=== PATIENT | male | born 1980 | race Caucasian/White ===

== ENCOUNTER → 2019-02-04 | Outpatient (REF) | payer OTHER ==
[~2019-02-04] MED LIST: IBUP200C PO; PENI500T PO
[2019-02-04 11:58] LABS: BASO # 0.1 10^3/uL (0.0-0.2); BASO % 0.6 % (0.0-1.0); EOS % 0.4 % (0.0-3.0); HEMATOCRIT 44.7 % (42.0-52.0); HEMOGLOBIN 15.6 g/dl (13.5-17.5); LYMPH # 1.9 10^3/uL (1.5-5.0); MEAN CORPUSCULAR HEMOGLOBIN 30.6 pg (27.0-33.0); MEAN CORPUSCULAR HGB CONC 34.9 g/dl (32.0-36.5); MEAN CORPUSCULAR VOLUME 87.6 fl (80.0-96.0); MONO # 0.6 10^3/uL (0.0-0.8); MONO % 6.9 % (0.0-5.0); NEUTROPHILS # 5.9 10^3/uL (1.5-8.5); NEUTROPHILS % 69.5 % (36.0-66.0); PLATELET COUNT, AUTOMATED 301 10^3/uL (150-450); WHITE BLOOD COUNT 8.5 10^3/uL (4.0-10.0)
[2019-02-04 12:26] LABS: ALBUMIN 3.9 GM/DL (3.2-5.2); CHOLESTEROL RISK RATIO 2.767 (<5); CREATININE FOR GFR 1.43 MG/DL (0.70-1.30); GLOMERULAR FILTRATION RATE 58.9 (>60); POTASSIUM SERUM 4.3 MEQ/L (3.5-5.1); THYROID STIMULATING HORMONE 2.75 uIU/ML (0.358-3.740); TOTAL PROTEIN 7.5 GM/DL (6.4-8.2)
[2019-02-04 12:27] LABS: FREE T4 0.9 NG/DL (0.76-1.46)
[2019-02-04 12:36] LABS: HEMOGLOBIN A1c 5.7 %
== END ==
LOC: M SFHCLERA 09:24
PROVIDERS: ATTEND Nurse Practitioner Family
DX: I10 Essential (primary) hypertension (principal); Z13.220 Encounter for screening for lipoid disorders; Z13.1 Encounter for screening for diabetes mellitus

== ENCOUNTER → 2019-05-19 | Outpatient (REF) | payer OTHER ==
[2019-05-19 11:49] LABS: ALT/SGPT 46 U/L (12-78); BILIRUBIN,TOTAL 1.1 MG/DL (0.2-1.0); BLOOD UREA NITROGEN 17 MG/DL (7-18); CARBON DIOXIDE LEVEL 29 MEQ/L (21-32); CHLORIDE LEVEL 102 MEQ/L (98-107); CREATININE FOR GFR 1.32 MG/DL (0.70-1.30); GLOMERULAR FILTRATION RATE > 60.0 (>60); GLUCOSE, FASTING 96 MG/DL (70-100); POTASSIUM SERUM 4.3 MEQ/L (3.5-5.1); SODIUM LEVEL 139 MEQ/L (136-145); TOTAL PROTEIN 7.6 GM/DL (6.4-8.2)
== END ==
LOC: M SFHCLERA 08:08
PROVIDERS: ATTEND Nurse Practitioner Family
DX: I10 Essential (primary) hypertension (principal)

== ENCOUNTER → 2020-04-30 | Outpatient (REF) | payer OTHER | LOC: M LAB REF 19:09 | PROVIDERS: ATTEND Physician Assistant | DX: Z11.59 Encounter for screening for other viral diseases (principal) ==

== ENCOUNTER → 2021-01-12 | Outpatient (CLI) | payer OTHER ==
[2021-01-12 11:33] LABS: BASO % 0.5 % (0.0-1.0); EOS % 0.5 % (0.0-3.0); HEMATOCRIT 46.6 % (42.0-52.0); HEMOGLOBIN 15.6 g/dl (13.5-17.5); LYMPH # 2.5 10^3/uL (1.5-5.0); LYMPH % 28.4 % (24.0-44.0); MEAN CORPUSCULAR HEMOGLOBIN 30.5 pg (27.0-33.0); MEAN CORPUSCULAR HGB CONC 33.5 g/dl (32.0-36.5); MEAN CORPUSCULAR VOLUME 91.2 fl (80.0-96.0); MONO # 0.7 10^3/uL (0.0-0.8); NEUTROPHILS # 5.4 10^3/uL (1.5-8.5); NEUTROPHILS % 61.8 % (36.0-66.0); PLATELET COUNT, AUTOMATED 295 10^3/uL (150-450); RED BLOOD COUNT 5.11 10^6/uL (4.30-6.10); WHITE BLOOD COUNT 8.7 10^3/uL (4.0-10.0)
[2021-01-12 12:20] LABS: MALB URINE SIEMENS 14.7 MG/L; MAU/CREAT RATIO 5.3 MCG/MG (0.0-30.0)
[2021-01-12 12:28] LABS: ALBUMIN 3.6 GM/DL (3.2-5.2); ALT/SGPT 58 U/L (12-78); BILIRUBIN,TOTAL 0.8 MG/DL (0.2-1.0); BLOOD UREA NITROGEN 16 MG/DL (7-18); CALCIUM LEVEL 8.8 MG/DL (8.5-10.1); CARBON DIOXIDE LEVEL 28 MEQ/L (21-32); CHLORIDE LEVEL 107 MEQ/L (98-107); CHOLESTEROL LEVEL 132 MG/DL (<200); CHOLESTEROL RISK RATIO 2.869 (<5); CREATININE FOR GFR 1.25 MG/DL (0.70-1.30); GLOMERULAR FILTRATION RATE > 60.0 (>60); GLUCOSE, FASTING 102 MG/DL (70-100); HDL CHOLESTEROL 46 MG/DL (>40); LDL CHOLESTEROL 71 MG/DL (<100); NON-HDL-C 86 MG/DL; POTASSIUM SERUM 4.2 MEQ/L (3.5-5.1); SODIUM LEVEL 140 MEQ/L (136-145); TRIGLYCERIDES LEVEL 77 MG/DL (<150)
== END ==
LOC: M WUC 09:41
PROVIDERS: ATTEND Nurse Practitioner Family
DX: I10 Essential (primary) hypertension (principal); Z13.220 Encounter for screening for lipoid disorders

== ENCOUNTER → 2021-03-09 | Outpatient (REF) | payer OTHER | LOC: M SMT 13:22 | PROVIDERS: ATTEND Urology | DX: Z30.2 Encounter for sterilization (principal) ==

== ENCOUNTER → 2021-05-04 | Outpatient (REF) | payer OTHER ==
[2021-05-04 09:38] LABS: SEMEN APPEARANCE OPAQUE (OPAQUE); SEMEN VISCOSITY LIQUID (LIQUID); SEMEN VOLUME 3.5 ml (2.0-5.0); WBC CONCENTRATION <=1 M/ml (<=1 M/ml)
== END ==
LOC: M SMT 08:34
PROVIDERS: ATTEND Urology
DX: Z30.8 Encounter for other contraceptive management (principal)

== ENCOUNTER → 2022-03-15 | Outpatient (CLI) | payer OTHER ==
[~2022-03-15] MED LIST changes: +AMLO1TAB24; +DOXY-443 PO; +LOSA100T45; +MULT1TAB8 PO
[2022-03-15 18:05] LABS: BASO # 0.1 10^3/uL (0.0-0.2); BASO % 0.4 % (0.0-1.0); EOS # 0.1 10^3/uL (0.0-0.5); EOS % 0.4 % (0.0-3.0); HEMATOCRIT 45.4 % (42.0-52.0); LYMPH # 2.3 10^3/uL (1.5-5.0); LYMPH % 17.1 % (24.0-44.0); MEAN CORPUSCULAR HEMOGLOBIN 30.8 pg (27.0-33.0); MEAN CORPUSCULAR VOLUME 93.2 fl (80.0-96.0); MONO # 1.1 10^3/uL (0.0-0.8); MONO % 7.9 % (2.0-8.0); NEUTROPHILS % 73.8 % (36.0-66.0); PLATELET COUNT, AUTOMATED 301 10^3/uL (150-450); RED BLOOD COUNT 4.87 10^6/uL (4.30-6.10); WHITE BLOOD COUNT 13.6 10^3/uL (4.0-10.0)
[2022-03-15 18:39] LABS: ERYTHROCYTE SEDIMENTATION RATE 14 mm/hr (0-15)
[2022-03-15 19:17] LABS: ALBUMIN 4.1 GM/DL (3.2-5.2); ALT/SGPT 39 U/L (12-78); BILIRUBIN,TOTAL 1.1 MG/DL (0.2-1.0); BLOOD UREA NITROGEN 22 MG/DL (7-18); C REACTIVE PROTEIN QUANTITATIV 3.69 MG/DL (0.00-0.30); CALCIUM LEVEL 8.9 MG/DL (8.5-10.1); CARBON DIOXIDE LEVEL 26 MEQ/L (21-32); CHLORIDE LEVEL 106 MEQ/L (98-107); CREATININE FOR GFR 1.26 MG/DL (0.70-1.30); GLOMERULAR FILTRATION RATE > 60.0 (>60); GLUCOSE, FASTING 128 MG/DL (70-100); POTASSIUM SERUM 3.7 MEQ/L (3.5-5.1); SODIUM LEVEL 138 MEQ/L (136-145); TOTAL PROTEIN 7.6 GM/DL (6.4-8.2)
== END ==
LOC: M WUC 15:08
PROVIDERS: ATTEND Family Medicine
DX: M79.672 Pain in left foot (principal); M25.476 Effusion, unspecified foot

== ENCOUNTER 2022-03-16 17:27 | Emergency (ER) | payer OTHER ==
[~2022-03-16] VITALS: Ht 172.7 cm; Wt 125.0 kg
[~2022-03-16 17:27] MED LIST changes: -AMLO1TAB24; -DOXY-443 PO; -LOSA100T45; -MULT1TAB8 PO
[2022-03-16] MEDS ORDERED: MULT1TAB8 PO (17:43)
[2022-03-16] MEDS ORDERED: AMLO1TAB24 (17:43)
[2022-03-16] MEDS ORDERED: LOSA100T45 (17:43)
[2022-03-16] MEDS ORDERED: DOXYCYCLINE HYCLATE 100MG TABLET PO ONE (21:00)
[2022-03-16] MEDS ORDERED: LIDOCAINE 1% SDV 5ML VIAL DILUENT ONE (21:00)
[2022-03-16] MEDS ORDERED: cefTRIAXone SOD 1GM VIAL (J0696 PER 250MG) IM ONE (21:00)
[2022-03-16] MEDS ORDERED: DOXY-443 PO (21:02)
[2022-03-16 21:27] VITALS: BP 140/83
[2022-03-16 21:53] LABS: GC DNA AMPLIFICATION NEGATIVE (NEGATIVE)
[2022-03-17] MEDS ORDERED: INDO50CA91 PO (16:50)
== END 2022-03-16 21:37 | disposition home or self-care (01) ==
LOC: M ED 17:27
DX: N34.1 Nonspecific urethritis (principal); L03.116 Cellulitis of left lower limb; Z79.899 Other long term (current) drug therapy
CPT/HCPCS: 81000; 87086; 87661; 87810; 87850; 96372; 99283; J0696

== ENCOUNTER 2022-03-22 15:13 | Emergency (ER) | payer OTHER ==
[~2022-03-22] VITALS: Ht 172.7 cm; Wt 127.5 kg
[~2022-03-22 15:13] MED LIST changes: +AMLO1TAB24; +DOXY-443 PO; +INDO50CA91 PO; +LOSA100T45; +MULT1TAB8 PO
[2022-03-22] MEDS ORDERED: DOXY-443 PO (18:55)
[2022-03-22 19:21] VITALS: BP 159/85
== END 2022-03-22 19:29 | disposition home or self-care (01) ==
LOC: M ED 15:13
DX: S82.831A Other fracture of upper and lower end of right fibula, initial encounter for closed fracture (principal); L03.116 Cellulitis of left lower limb; I10 Essential (primary) hypertension; Z79.899 Other long term (current) drug therapy

== ENCOUNTER → 2022-03-30 | Outpatient (CLI) | payer OTHER | LOC: M SOG 10:39 | PROVIDERS: ATTEND Orthopaedic Surgery | DX: M25.561 Pain in right knee (principal) ==

== ENCOUNTER → 2023-11-01 | Outpatient (REF) | payer OTHER ==
[~2023-11-01] MED LIST changes: +DOXY-323 PO; -DOXY-443 PO; -LOSA100T45; +LOSA100T46
== END ==
LOC: M SFHCLERA 15:56
PROVIDERS: ATTEND Family Medicine
DX: I10 Essential (primary) hypertension (principal); R73.03 Prediabetes; E66.01 Morbid (severe) obesity due to excess calories; Z53.8 Procedure and treatment not carried out for other reasons

== ENCOUNTER → 2023-11-02 | Outpatient (REF) | payer OTHER ==
[2023-11-02 17:07] LABS: BASO % 0.6 % (0.0-1.0); EOS % 0.6 % (0.0-3.0); HEMATOCRIT 45.4 % (42.0-52.0); HEMOGLOBIN 15.2 g/dl (13.5-17.5); LYMPH # 2.2 10^3/uL (1.5-5.0); LYMPH % 34.8 % (24.0-44.0); MEAN CORPUSCULAR HEMOGLOBIN 30.7 pg (27.0-33.0); MEAN CORPUSCULAR HGB CONC 33.5 g/dl (32.0-36.5); MEAN CORPUSCULAR VOLUME 91.7 fl (80.0-96.0); MONO # 0.5 10^3/uL (0.0-0.8); NEUTROPHILS # 3.5 10^3/uL (1.5-8.5); NEUTROPHILS % 55.5 % (36.0-66.0); PLATELET COUNT, AUTOMATED 279 10^3/uL (150-450); RED BLOOD COUNT 4.95 10^6/uL (4.30-6.10); WHITE BLOOD COUNT 6.2 10^3/uL (4.0-10.0)
[2023-11-02 17:09] LABS: ALBUMIN 3.6 G/DL (3.2-5.2); ALKALINE PHOSPHATASE 98 U/L (46-116); ALT/SGPT 34 U/L (7.0-40); AST/SGOT 16 U/L (<34); BILIRUBIN,TOTAL 0.9 MG/DL (0.3-1.2); BLOOD UREA NITROGEN 20 MG/DL (9-23); CALCIUM LEVEL 9.2 MG/DL (8.5-10.1); CARBON DIOXIDE LEVEL 28 MMOL/L (20-31); CHLORIDE LEVEL 106 MMOL/L (98-107); CHOLESTEROL LEVEL 101 MG/DL (<200); CHOLESTEROL RISK RATIO 2.72 (<5); CREATININE FOR GFR 1.23 MG/DL (0.70-1.30); GLOMERULAR FILTRATION RATE > 60.0 (>60); GLUCOSE, FASTING 99 MG/DL (60-100); HDL CHOLESTEROL 37.1 MG/DL (>40); LDL CHOLESTEROL 51.9 MG/DL (<100); NON-HDL-C 63.9 MG/DL; POTASSIUM SERUM 4.4 MMOL/L (3.5-5.1); SODIUM LEVEL 139 MMOL/L (136-145); TOTAL PROTEIN 6.9 G/DL (5.7-8.2); TRIGLYCERIDES LEVEL 60 MG/DL (<150)
[2023-11-02 17:12] LABS: APPEARANCE, URINE TURBID (CLEAR); BACTERIA, URINE AUTO NEGATIVE (NEGATIVE); BILIRUBIN, URINE AUTO NEGATIVE (NEGATIVE); BLOOD, URINE BLOOD NEGATIVE (NEGATIVE); COLOR, URINE AMBER (YELLOW); GLUCOSE, URINE (UA) AUTO NEGATIVE (NEGATIVE); KETONE, URINE AUTO NEGATIVE (NEGATIVE); LEUKOCYTE ESTERASE, URINE AUTO NEGATIVE (NEGATIVE); MUCUS, URINE SMALL (NEGATIVE); NITRITE, URINE AUTO NEGATIVE (NEGATIVE); PROTEIN, URINE AUTO NEGATIVE (NEGATIVE); RBC, URINE AUTO 0 /HPF (0-3); SPECIFIC GRAVITY URINE AUTO 1.027 (1.002-1.035); SQUAMOUS EPITHELIAL CELL UR AU 0 /HPF (0-6); UROBILINOGEN, URINE AUTO 0.2 mg/dL (0.0-2.0); WBC, URINE AUTO 1 /HPF (0-3)
[2023-11-02 17:47] LABS: HEMOGLOBIN A1c 5.7 % (4.0-6.0)
== END ==
LOC: M SFHCLERA 09:07
PROVIDERS: ATTEND Family Medicine
DX: I10 Essential (primary) hypertension (principal); R73.03 Prediabetes; E66.01 Morbid (severe) obesity due to excess calories

== ENCOUNTER 2024-03-21 10:52 | Emergency (ER) | payer OTHER ==
[~2024-03-21] VITALS: Ht 177.8 cm; Wt 127.0 kg
[~2024-03-21 10:52] MED LIST changes: -DOXY-323 PO; +DOXY-441 PO
[2024-03-21 11:24] LABS: BASO # 0.1 10^3/uL (0.0-0.2); BASO % 0.4 % (0.0-1.0); EOS % 0.2 % (0.0-3.0); HEMATOCRIT 45.9 % (42.0-52.0); HEMOGLOBIN 15.8 g/dl (13.5-17.5); LYMPH # 1.6 10^3/uL (1.5-5.0); MEAN CORPUSCULAR HGB CONC 34.4 g/dl (32.0-36.5); MONO # 1.1 10^3/uL (0.0-0.8); MONO % 9.1 % (2.0-8.0); NEUTROPHILS # 9.4 10^3/uL (1.5-8.5); NEUTROPHILS % 76.9 % (36.0-66.0); PLATELET COUNT, AUTOMATED 282 10^3/uL (150-450); WHITE BLOOD COUNT 12.2 10^3/uL (4.0-10.0)
[2024-03-21 11:37] LABS: INR 0.97; PARTIAL THROMBOPLASTIN TIME 27.6 SECONDS (24.8-34.2); PROTHROMBIN TIME 13.1 SECONDS (12.5-14.5)
[2024-03-21 11:52] LABS: LIPASE 28 U/L (12-53)
[2024-03-21 11:55] LABS: ALKALINE PHOSPHATASE 99 U/L (40-129); ALT/SGPT 35 U/L (7.0-40); AST/SGOT 15 U/L (<34); BILIRUBIN,DIRECT 0.5 MG/DL (<0.4); BILIRUBIN,TOTAL 1.4 MG/DL (0.3-1.2); BLOOD UREA NITROGEN 19 MG/DL (9-23); CALCIUM LEVEL 9.4 MG/DL (8.5-10.1); CARBON DIOXIDE LEVEL 29 MMOL/L (20-31); CHLORIDE LEVEL 105 MMOL/L (98-107); CK-MB VALUE MASS < 1.0 NG/ML (<3.6); CREATININE FOR GFR 1.11 MG/DL (0.70-1.30); GLOMERULAR FILTRATION RATE > 60.0 (>60); GLUCOSE, FASTING 95 MG/DL (60-100); POTASSIUM SERUM 4.2 MMOL/L (3.5-5.1); SODIUM LEVEL 140 MMOL/L (136-145); TOTAL PROTEIN 7.9 G/DL (5.7-8.2)
[2024-03-21 11:56] LABS: THYROID STIMULATING HORMONE 1.176 uIU/ML (0.55-4.78)
[2024-03-21 11:57] LABS: FREE T4 1.01 NG/DL (0.89-1.76)
[2024-03-21 11:59] LABS: CPK CREATINE PHOSPHOKINASE 191 U/L (46-171); MB/CK RELATIVE INDEX 0.52 (< OR =4)
[2024-03-21] MEDS ORDERED: ISOVUE-370 76% 100ML VIAL As Ordered ONE (12:07)
[2024-03-21 12:54] LABS: CK-MB VALUE MASS < 1.0 NG/ML (<3.6)
[2024-03-21 12:55] LABS: CPK CREATINE PHOSPHOKINASE 182 U/L (46-171); MB/CK RELATIVE INDEX 0.54 (< OR =4)
[2024-03-21] MEDS: ACETAMINOPHEN 325 MG TAB PO ONE (13:41)
[2024-03-21] MEDS ORDERED: KETOROLAC 60MG 2ML VIAL IM ONE (13:55)
[2024-03-21 14:03] LABS: ERYTHROCYTE SEDIMENTATION RATE 24 mm/hr (0-15)
[2024-03-21] MEDS: KETOROLAC 30 MG/ML 1ML VIAL IV ONE (14:15)
[2024-03-21] MEDS ORDERED: IBUP-1022 PO (15:17)
[2024-03-21] MEDS ORDERED: COLC0.6T47 PO (15:18)
[2024-03-21 16:11] VITALS: BP 128/73; TEMP 99.4; O2SAT 97
== END 2024-03-21 16:18 | disposition home or self-care (01) ==
LOC: M ED 10:52
DX: I30.9 Acute pericarditis, unspecified (principal); K76.0 Fatty (change of) liver, not elsewhere classified; I10 Essential (primary) hypertension; Z87.891 Personal history of nicotine dependence; Z79.899 Other long term (current) drug therapy
CPT/HCPCS: 71045; 71275; 80048; 80076; 82550; 82553; 83690; 84439; 84443; 84484; 85025; 85610; 85652; 85730; 86140; 87486; 87581; 87633; 87798; 93005; 93041; 94760; 96374; 99285; J1885; Q9967

== ENCOUNTER → 2025-01-26 | Outpatient (CLI) | payer OTHER ==
[~2025-01-26] MED LIST changes: +COLC0.6T53 PO; +IBUP600T42 PO
== END ==
LOC: M RAD 10:42
PROVIDERS: ATTEND Nurse Practitioner Family
DX: M79.605 Pain in left leg (principal)

== ENCOUNTER → 2025-01-28 | Outpatient (CLI) | payer OTHER | LOC: M SOG 07:25 | PROVIDERS: ATTEND Orthopaedic Surgery | DX: M79.662 Pain in left lower leg (principal) ==

== ENCOUNTER → 2025-05-08 | Outpatient (CLI) | payer OTHER ==
[~2025-05-08] MED LIST changes: -AMLO1TAB24; +AMLO1TAB24 PO; +LOSA100T46 PO
[2025-05-08 09:44] LABS: BASO # 0.1 10^3/uL (0.0-0.2); BASO % 0.6 % (0.0-1.0); EOS # 0.1 10^3/uL (0.0-0.5); EOS % 0.9 % (0.0-3.0); LYMPH # 2.1 10^3/uL (1.5-5.0); LYMPH % 24.4 % (24.0-44.0); MONO # 0.6 10^3/uL (0.0-0.8); MONO % 6.6 % (2.0-8.0); NEUTROPHILS # 5.7 10^3/uL (1.5-8.5); NEUTROPHILS % 66.8 % (36.0-66.0); PLATELET COUNT, AUTOMATED 318 10^3/uL (150-450)
[2025-05-08 10:03] LABS: ALT/SGPT 30.0 U/L (7.0-40); AST/SGOT 22.0 U/L (<34); CALCIUM LEVEL 9.3 MG/DL (8.5-10.1); CARBON DIOXIDE LEVEL 30.0 MMOL/L (20-31); CHLORIDE LEVEL 102.0 MMOL/L (98-107); CHOLESTEROL LEVEL 115.0 MG/DL (<200); CHOLESTEROL RISK RATIO 2.68 (<5); CREATININE FOR GFR 1.23 MG/DL (0.70-1.30); GLOMERULAR FILTRATION RATE 73.8 (>60); LDL CHOLESTEROL 51.8 MG/DL (<100); NON-HDL-C 72.2 MG/DL; POTASSIUM SERUM 4.5 MMOL/L (3.5-5.1); SODIUM LEVEL 139.0 MMOL/L (136-145); TRIGLYCERIDES LEVEL 102.0 MG/DL (<150)
[2025-05-08 10:11] LABS: ESTIMATED AVERAGE GLUCOSE 117.0 MG/DL (60-110)
== END ==
LOC: M LAB 08:39
PROVIDERS: ATTEND Family Medicine
DX: Z00.00 Encounter for general adult medical examination without abnormal findings (principal); R73.03 Prediabetes; E66.813 Obesity, class 3